=== PATIENT | female | born 1995 | race Caucasian/White ===

== ENCOUNTER 2017-11-22 00:29 | Emergency (ER) | payer BC ==
[2017-11-22 00:42] VITALS: BMI 22.8
[2017-11-22] MEDS ORDERED: NS 1000 ML 1,000 ML IV ONE (01:04)
[2017-11-22] MEDS ORDERED: NS 1000 ML 1,000 ML ONE (01:04)
[2017-11-22] MEDS ORDERED: PHENERGAN INJ 25 MG IV ONE (01:12)
[2017-11-22] MEDS ORDERED: PHENERGAN INJ 25 MG ONE (01:13)
[2017-11-22 01:23] LABS: BASOPHILS % (AUTO) 0.2 % (0.2-1.0); EOSINOPHILS % (AUTO) 0.4 % (0.9-2.9); HEMATOCRIT 29.8 % (36.0-47.0); HEMOGLOBIN 10.6 g/dL (12.0-16.0); LYMPHOCYTES # (AUTO) 1.9 X10^3/uL (1.3-2.9); LYMPHOCYTES % (AUTO) 18.4 % (21.0-51.0); MEAN CORPUSCULAR HEMOGLOBIN 30.8 pg (27.0-34.0); MEAN CORPUSCULAR HGB CONC 35.5 g/dL (33.0-35.0); MEAN CORPUSCULAR VOLUME 86.6 fL (80.0-100.0); MEAN PLATELET VOLUME 8.7 fL (7.4-11.0); MONOCYTES # (AUTO) 0.5 x10^3/uL (0.3-0.8); MONOCYTES % (AUTO) 4.9 % (0.0-13.0); NEUTROPHILS # (AUTO) 7.9 x10^3/uL (2.2-4.8); NEUTROPHILS % (AUTO) 76.1 % (42.0-75.0); PLATELET COUNT 231 X10^3/uL (150.0-450.0); RED BLOOD COUNT 3.44 X10^6/uL (3.5-5.4); RED CELL DISTRIBUTION WIDTH 12.4 % (11.6-16.5); WHITE BLOOD COUNT 10.4 X10^3/uL (3.6-10.0)
[2017-11-22 01:23] LABS: BILIRUBIN,URINE NEGATIVE (NEGATIVE); BLOOD/HEMOGLOBIN,URINE 1+ (NEGATIVE); GLUCOSE, URINE NEGATIVE (NEGATIVE); KETONES,URINE 1+ (NEGATIVE); LEUKOCYTE ESTERASE ,URINE 2+ (NEGATIVE); NITRITES,URINE NEGATIVE (NEGATIVE); PROTEIN,URINE 1+ (NEGATIVE); UROBILINOGEN,URINE 1+ (NORMAL)
[2017-11-22 01:35] LABS: APPEARANCE,URINE CLOUDY (CLEAR); BACTERIA,URINE 3+ /HPF (NEGATIVE); COLOR,URINE YELLOW (YELLOW); MUCUS,URINE MODERATE /HPF (NEGATIVE); RBC,URINE RARE /HPF (NEGATIVE); SQUAMOUS EPITHELIAL CELL,UR NUMEROUS /HPF (NEGATIVE)
[2017-11-22 01:48] LABS: BLOOD UREA NITROGEN 7 mg/dL (7-18); CALCIUM 8.5 mg/dL (8.5-10.1); CARBON DIOXIDE 26.6 mmol/L (21-32); CHLORIDE 103 mmol/L (98-107); CREATININE 0.49 mg/dL (0.55-1.02); SODIUM 136 mmol/L (136-145); eGFR BLACK RACES > 60 (>60); eGFR NON BLACK RACES > 60 (>60)
--- NOTE | 2017-11-22 02:23 | DR.GENAD ---
HPI - PCP Primary Care Physician: major - Complaint/Symptoms Chief Complaint Doctors Comments: Patient presents with n/v since this AM. She is 30 weeks gestation;. Denies fever. Chief Complaint:: pt states" i've been throwing up since 10 pm and diarrhea" - Source History Provided: Patient - Mode of Arrival Mode of Arrival: Ambulatory - Timing Onset of Chief Complaint: 11/21/17 PMH - PMH Past Medical History: No Past Surgical History: Yes Surgical History: Cholecystectomy Past Surgical History Comment: back - Family History History of Family Medical Conditions: Yes Family Medical History: Cancer, Hypertension - Social History Does patient currently use any type of tobacco product: No Have you used tobacco products in the last 12 months: No Type of Tobacco Use: None Does any household member use tobacco: No Alcohol Use: None Do you use any recreational Drugs:: No Lives With: Family Lives Where: Home - infectious screening In the last 2 months have you had wt loss of >10#?: NO Have you had fever, night sweats or hemotysis?: No Have you traveled outside the country in the last 6 months?: No Isolation: Standard ROS - Review of Systems Eyes: No Symptoms Reported ENTM: No Symptoms Reported Respiratoy: No Symptoms Reported Cardiovascular: No Symptoms Reported Gastrointestinal/Abdominal: No Symptoms Reported Genitourinary: No Symptoms Reported Neurological: No Symptoms Reported Musculoskeletal: No Symptoms Reported Integumentary: No Symptoms Reported Hematologic/Lymphatic: No Symptoms Reported Endocrine: No Symptoms Reported Psychiatric: No Symptoms Reported All Other Systems: Reviewed and Negative PE - Vital Signs Vitals: Temperature 97.2 F Pulse Rate 94 Respiratory Rate 18 Blood Pressure 105/62 O2 Sat by Pulse Oximetry 99 - General General Appearance: Alert, In No Apparent Distress - Head Head Exam: Normal Inspection, Atraumatic - Eyes Eye exam: Normal Appearance, PERRL, EOMI - ENT ENT Exam: Normal Exam External Ear Exam: Normal External Inspection TM/Canal Exam: Bilateral Normal Nose Exam: Normal Nose Exam Mouth Exam: Normal Inspection Throat Exam: Normal Inspection - Neck Neck Exam: Normal Inspection, Full ROM - Chest Chest Inspection: Normal Inspection - Respiratory Respiratory Exam: Normal Lung Sounds Bilat Respiratory Exam: Bilateral Clear to Auscultation - Cardiovascular Cardiovascular Exam: Regular Rate, Normal Rhythm - Abdominal Exam Abdominal Exam: Normal Inspection, Normal Bowel Sounds Abdominal Tenderness: negative: RUQ, RLQ, LUQ, LLQ, Epigastrium, Suprapubic, Diffuse, Mild, Moderate, Severe, Other - Extremities Extremities Exam: Normal Inspection, Full ROM - Back Back Exam: Normal Inspection - Neurologic Neurological Exam: Alert, Oriented X3, CN II-XII Intact - Psychiatric Psychiatric Exam: Normal Affect - Skin Skin Exam: Warm, Dry, Intact ROR - Labs Reviewed Laboratory Results Reviewed?: Yes (UA: 2+ leukocytes) Result Diagrams: 11/22/17 01:00 11/22/17 01:00 Laboratory: WBC 10.4 X10^3/uL (3.6-10.0) H 11/22/17 01:00 RBC 3.44 X10^6/uL (3.5-5.4) L 11/22/17 01:00 Hgb 10.6 g/dL (12.0-16.0) L 11/22/17 01:00 Hct 29.8 % (36.0-47.0) L 11/22/17 01:00 MCV 86.6 fL (80.0-100.0) 11/22/17 01:00 MCH 30.8 pg (27.0-34.0) 11/22/17 01:00 MCHC 35.5 g/dL (33.0-35.0) H 11/22/17 01:00 RDW 12.4 % (11.6-16.5) 11/22/17 01:00 Plt Count 231 X10^3/uL (150.0-450.0) 11/22/17 01:00 MPV 8.7 fL (7.4-11.0) 11/22/17 01:00 Neut % 76.1 % (42.0-75.0) H 11/22/17 01:00 Lymph % 18.4 % (21.0-51.0) L 11/22/17 01:00 [place] % 4.9 % (0.0-13.0) 11/22/17 01:00 Eos % 0.4 % (0.9-2.9) L 11/22/17 01:00 Baso % 0.2 % (0.2-1.0) 11/22/17 01:00 Neut # 7.9 x10^3/uL (2.2-4.8) H 11/22/17 01:00 Lymph # 1.9 X10^3/uL (1.3-2.9) 11/22/17 01:00 [place] # 0.5 x10^3/uL (0.3-0.8) 11/22/17 01:00 Eos # 0.0 x10^3/uL (0.0-0.2) 11/22/17 01:00 Baso # 0.0 X10^3/uL (0.0-0.1) 11/22/17 01:00 Absolute Nucleated RBC 0.0 /100WBC 11/22/17 01:00 Sodium 136 mmol/L (136-145) 11/22/17 01:00 Corrected Sodium TNP 11/22/17 01:00 Potassium 3.4 mmol/L (3.5-5.1) L 11/22/17 01:00 Chloride 103 mmol/L (98-107) 11/22/17 01:00 Carbon Dioxide 26.6 mmol/L (21-32) 11/22/17 01:00 BUN 7 mg/dL (7-18) 11/22/17 01:00 Creatinine 0.49 mg/dL (0.55-1.02) L 11/22/17 01:00 Est GFR (MDRD) Af Amer > 60 (>60) 11/22/17 01:00 Est GFR (MDRD) Non-Af > 60 (>60) 11/22/17 01:00 Glucose 99 mg/dL (65-99) 11/22/17 01:00 Calcium 8.5 mg/dL (8.5-10.1) 11/22/17 01:00 Specimen Type Clean catch urine 11/22/17 00:51 Urine Color Yellow (YELLOW) 11/22/17 00:51 Urine Appearance Cloudy (CLEAR) 11/22/17 00:51 Urine pH 6.0 (5.0 - 8.0) 11/22/17 00:51 Ur Specific [place] 1.020 (1.000-1.030) 11/22/17 00:51 Urine Protein 1+ (NEGATIVE) 11/22/17 00:51 Urine Glucose (UA) Negative (NEGATIVE) 11/22/17 00:51 Urine Ketones 1+ (NEGATIVE) 11/22/17 00:51 Urine Occult Blood 1+ (NEGATIVE) 11/22/17 00:51 Urine Nitrite Negative (NEGATIVE) 11/22/17 00:51 Urine Bilirubin Negative (NEGATIVE) 11/22/17 00:51 Urine Urobilinogen 1+ (NORMAL) 11/22/17 00:51 Ur Leukocyte Esterase 2+ (NEGATIVE) 11/22/17 00:51 Urine RBC Rare /HPF (NEGATIVE) 11/22/17 00:51 Urine WBC 2-6 /HPF (NEGATIVE) 11/22/17 00:51 Ur Squamous Epith Cells Numerous /HPF (NEGATIVE) 11/22/17 00:51 Urine Bacteria 3+ /HPF (NEGATIVE) 11/22/17 00:51 Urine Mucus Moderate /HPF (NEGATIVE) 11/22/17 00:51 Ur Culture Indicated? No/not indicated 11/22/17 00:51 - Discharge Plan Condition: Stable - Follow ups/Referrals Follow ups/Referrals: RUSH MAO [Primary Care Provider] - 3 days Lis Small MD [STAFF PHYSICIAN] - 1 day - Instructions Instructions: Second Trimester of , Revs-ws-Pwpt
[2017-11-22] MEDS ORDERED: K-DUR TAB 20 MEQ PO ONE (02:41)
[2017-11-22] MEDS ORDERED: MACROBID CAP 100 MG EXT REL PO SCH (03:00)
[2017-11-22] MEDS ORDERED: K-DUR TAB 20 MEQ PO SCH (03:00)
[2017-11-22 03:02] VITALS: BP 110/76
== END 2017-11-22 03:02 | disposition home or self-care (01) ==
LOC: ER 00:29
DX: N39.0 Urinary tract infection, site not specified (principal); R11.2 Nausea with vomiting, unspecified; Z3A.30 30 weeks gestation of pregnancy
CPT/HCPCS: 36415; 80048; 81001; 85025; 96365; 96374; 99282; 99284; A4222; J2550